=== PATIENT | female | born 2000 | race Caucasian/White ===

== ENCOUNTER 2019-01-02 09:15 | Emergency (ER) | payer OTHER ==
[~2019-01-02] VITALS: Ht 172.7 cm; Wt 65.9 kg
[2019-01-02 09:21] VITALS: BP 131/77
--- NOTE | 2019-01-02 22:14 | ECGEPIP ---
[facility] - ED Test Date: 2019-01-02 Pat Name: DESIRAE RICKS Department: Room: - Gender: Female Forest Officer: meliza : 2000 Requested By: CARTER LEMON PA-C. Order Number: [id number] Reading MD: Kd Jimenez Measurements Intervals [place] Rate: 67 P: 59 LA: 154 QRS: 77 QRSD: 92 T: 44 QT: 397 QTc: 420 Interpretive Statements SINUS RHYTHM Comparison tracing not on file Electronically Signed on 01-02-2019 22:13:37 EDT by Kd Jimenez
== END 2019-01-02 10:26 | disposition home or self-care (01) ==
LOC: EDBD 09:15 → M ED 09:15
DX: F41.0 Panic disorder [episodic paroxysmal anxiety] (principal); Z88.0 Allergy status to penicillin; Z91.012 Allergy to eggs

== ENCOUNTER 2019-03-07 16:38 | Emergency (ER) | payer OTHER ==
[~2019-03-07] VITALS: Ht 170.2 cm; Wt 63.6 kg
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
[2019-03-07 20:18] VITALS: BP 123/74
== END 2019-03-07 20:29 | disposition home or self-care (01) ==
LOC: M ED 16:38
DX: S67.195A Crushing injury of left ring finger, initial encounter (principal); W23.0XXA Caught, crushed, jammed, or pinched between moving objects, initial encounter; Y92.89 Other specified places as the place of occurrence of the external cause; Y93.89 Activity, other specified; Y99.1 Military activity; Z88.0 Allergy status to penicillin; Z91.012 Allergy to eggs

== ENCOUNTER 2019-03-28 01:59 | Emergency (ER) | payer OTHER ==
[~2019-03-28] VITALS: Ht 170.2 cm; Wt 65.9 kg
[2019-03-28] MEDS ORDERED: PRENMIS3 PO (04:47)
[2019-03-28 14:16] VITALS: BP 136/86
== END 2019-03-28 14:24 ==
LOC: M ED 01:59
DX: R45.851 Suicidal ideations (principal); Z88.1 Allergy status to other antibiotic agents; Z91.012 Allergy to eggs; Z79.899 Other long term (current) drug therapy

== ENCOUNTER 2019-06-14 14:30 | Emergency (ER) | payer OTHER ==
[~2019-06-14] VITALS: Ht 170.2 cm; Wt 69.5 kg
[~2019-06-14 14:30] MED LIST: PRENMIS3 PO
[2019-06-14 16:08] LABS: BASO % 0.3 % (0.0-1.0); EOS # 0.1 10^3/uL (0.0-0.5); EOS % 0.5 % (0.0-3.0); HEMATOCRIT 38.7 % (36.0-47.0); HEMOGLOBIN 12.4 g/dl (12.0-15.5); LYMPH # 2.7 10^3/uL (1.5-5.0); LYMPH % 28.5 % (24.0-44.0); MEAN CORPUSCULAR HEMOGLOBIN 27.6 pg (27.0-33.0); MONO # 0.8 10^3/uL (0.0-0.8); MONO % 8.7 % (0.0-5.0); NEUTROPHILS # 5.9 10^3/uL (1.5-8.5); NEUTROPHILS % 61.7 % (36.0-66.0); PLATELET COUNT, AUTOMATED 342 10^3/uL (150-450); WHITE BLOOD COUNT 9.6 10^3/uL (4.0-10.0)
--- NOTE | 2019-06-14 17:24 | REP ---
FIRST TRIMESTER ULTRASOUND: Real-time sonographic evaluation of the gravid uterus performed. There is a single living intrauterine gestation. Estimated gestational age is 6 weeks 1 day based on a crown rump length of 4 mm, EDC 02/06/2020. heart rate is 118 beats per minute. There is no subchorionic hemorrhage. There is a complex cystic structure of the right ovary which may represent a complex corpus luteum 2.3 x 1.6 x 2.7 cm. There is no evidence of torsion of either ovary with duplex Doppler evaluation. No free fluid is seen. Electronically Signed by Candelario Ascencio MD 06/18/2019 04:06 P
[2019-06-14 17:26] VITALS: BP 109/65
== END 2019-06-14 17:33 | disposition home or self-care (01) ==
LOC: M ED 14:30
DX: O99.89 Other specified diseases and conditions complicating pregnancy, childbirth and the puerperium (principal); R10.2 Pelvic and perineal pain; Z3A.01 Less than 8 weeks gestation of pregnancy; Z88.0 Allergy status to penicillin; Z91.012 Allergy to eggs

== ENCOUNTER 2019-11-13 21:11 | Outpatient (CLI) | payer OTHER ==
[~2019-11-13] VITALS: Ht 170.2 cm; Wt 84.9 kg
[2019-11-13 21:31] VITALS: BP 132/62
--- NOTE | 2019-11-13 23:45 | IPNPDOC ---
Text Note Date of Service The patient was seen on 11/13/19. NOTE Triage note Ashley is a 18yo with SIUP at approx 28wk presenting per instructions after she called the pager stating she had fallen around 1900. She was walking and rolled her ankle (notes this happens to her "all the time" b/c of weak ankles), fell onto the cement, fell on right side- she believes her belly hit her right knee. She wasn't feeling movement initially but has felt robust movement in triage. No vaginal bleeding, no ctx, no LOF. Vitals wnl, afebrile General: resting in bed comfortably, WDWN Abdomen: soft, gravid, NTTP Extremities: no edema of BLE TAUS: [place] IUP with cephalic presentation, MVP 4.4cm, +FCA, +FM, anterior placenta without obvious abnormality Cat I FHRT with bl 130's, +accels, -decels, mod ronan [place]: no ctx pattern Assessment: Ashley is a 18yo with SIUP at approx 28wk s/p fall at 1900 with NO e/o placental abruption. Reassuring status with Cat I FHRT and no ctx pattern. Vitals wnl, benign exam. Plan: -safe for discharge home -keep next routine OB appt at 32wk -tylenol/warm bath prn for discomfort -return precautions discussed Dr. Brinda Samano MD VS,Nadya, I+O VS, Nadya, I+O Vital Signs Date Time Temp Pulse Resp B/P (MAP) Pulse Ox O2 Delivery O2 Flow Rate FiO2 11/13/19 21:31 98.2 96 18 132/62 (85) Brinda Samano MD November 13, 2019 23:45
== END 2019-11-13 23:45 | disposition home or self-care (01) ==
LOC: M LDO 21:11
PROVIDERS: ATTEND Obstetrics & Gynecology
DX: Z04.3 Encounter for examination and observation following other accident (principal); W10.9XXA Fall (on) (from) unspecified stairs and steps, initial encounter; Y92.89 Other specified places as the place of occurrence of the external cause; Y93.89 Activity, other specified; Y99.8 Other external cause status; Z3A.28 28 weeks gestation of pregnancy
CPT/HCPCS: G0378; G0463

== ENCOUNTER → 2019-12-30 | Outpatient (CLI) | payer OTHER ==
[~2019-12-30] VITALS: Ht 172.7 cm; Wt 90.4 kg
[2019-12-30 13:44] VITALS: BP 142/82
[2019-12-30 14:37] VITALS: BP 128/66
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
== END ==
LOC: M LDO 13:17
PROVIDERS: ATTEND Obstetrics & Gynecology
DX: O47.9 False labor, unspecified (principal); Z3A.35 35 weeks gestation of pregnancy; Z88.1 Allergy status to other antibiotic agents; Z91.012 Allergy to eggs
CPT/HCPCS: 76815; G0378; G0463

== ENCOUNTER → 2020-01-31 | Outpatient (CLI) | payer OTHER | LOC: M LDO 21:50 | PROVIDERS: ATTEND Obstetrics & Gynecology | DX: O47.1 False labor at or after 37 completed weeks of gestation (principal); Z3A.39 39 weeks gestation of pregnancy | CPT/HCPCS: 59025; G0378; G0463 ==

== ENCOUNTER 2020-02-07 11:30 | Inpatient (IN) | payer OTHER ==
[2020-02-07] MEDS ORDERED: VANCOMYCIN 1000MG/20ML VIAL As Ordered ONE (11:57)
[2020-02-07] MEDS ORDERED: VANCOMYCIN 1000MG/20ML VIAL ONE (11:57)
[2020-02-07] MEDS ORDERED: BUTORPHANOL 2 MG/ML INJ (J0595) As Ordered ONE (12:07)
[2020-02-07] MEDS ORDERED: PROMETHAZINE INJ 25 MG/ML VIAL (J2550) As Ordered ONE (12:07)
[2020-02-07] MEDS ORDERED: BUTORPHANOL 2 MG/ML INJ (J0595) ONE (12:07)
[2020-02-07] MEDS ORDERED: PROMETHAZINE INJ 25 MG/ML VIAL (J2550) ONE (12:07)
[2020-02-07] MEDS ORDERED: FENTANYL 2MCG/ML ROPIVACAINE 0.2% IN 0.9% NACL 100ML IVBAG ONE (14:18)
[2020-02-07] MEDS ORDERED: FENTANYL 2MCG/ML ROPIVACAINE 0.2% IN 0.9% NACL 100ML IVBAG As Ordered ONE (14:18)
[2020-02-07] MEDS ORDERED: OXYTOCIN 30 UNITS IN 0.9% NaCl 500ML IV BAG (J2590) ONE (19:57)
[2020-02-07] MEDS ORDERED: OXYTOCIN 30 UNITS IN 0.9% NaCl 500ML IV BAG (J2590) As Ordered ONE (19:57)
[2020-02-07] MEDS ORDERED: IBUPROFEN 800 MG TAB As Ordered ONE (20:31)
[2020-02-07] MEDS ORDERED: ACETAMINOPHEN 325 MG TAB As Ordered ONE (21:30)
[2020-02-07] MEDS ORDERED: IBUPROFEN 800 MG TAB ONE (21:31)
[2020-02-07] MEDS ORDERED: ACETAMINOPHEN 500 MG TAB As Ordered ONE (21:33)
[2020-02-07] MEDS ORDERED: ACETAMINOPHEN 500 MG TAB ONE (22:33)
[2020-02-07] MEDS ORDERED: CEFTAZIDIME ONE (23:00)
[2020-02-08] MEDS ORDERED: ACETAMINOPHEN 500 MG TAB As Ordered ONE (06:29)
[2020-02-08] MEDS ORDERED: ACETAMINOPHEN 500 MG TAB ONE (06:29)
[2020-02-08] MEDS ORDERED: SIMETHICONE 80 MG CHEW TAB As Ordered ONE (17:31)
[2020-02-08] MEDS ORDERED: SIMETHICONE 80 MG CHEW TAB ONE (17:31)
[2020-02-08] MEDS ORDERED: DOCUSATE SODIUM 100 MG CAP ONE (17:32)
[2020-02-08] MEDS ORDERED: IBUPROFEN 800 MG TAB As Ordered ONE (17:32)
[2020-02-08] MEDS ORDERED: IBUPROFEN 800 MG TAB ONE (17:32)
[2020-02-08] MEDS ORDERED: DOCUSATE SODIUM 100 MG CAP As Ordered ONE (17:32)
[2020-02-08] MEDS ORDERED: ANUSOL HC CREAM 30GM ONE (17:54)
[2020-02-08] MEDS ORDERED: ANUSOL HC CREAM 30GM As Ordered ONE (17:54)
[2020-02-09] MEDS ORDERED: DOCUSATE SODIUM 100 MG CAP ONE (09:25)
[2020-02-09] MEDS ORDERED: DOCUSATE SODIUM 100 MG CAP As Ordered ONE (09:25)
[2020-02-09] MEDS ORDERED: IBUPROFEN 800 MG TAB ONE ×2 (09:39→09:45)
[2020-02-09] MEDS ORDERED: IBUPROFEN 800 MG TAB As Ordered ONE ×2 (09:39→09:45)
[2020-02-09] MEDS ORDERED: ACETAMINOPHEN 500 MG TAB As Ordered ONE (16:39)
[2020-02-09] MEDS ORDERED: ACETAMINOPHEN 500 MG TAB ONE (16:39)
[2020-04-05 11:30] LABS: HEMATOCRIT 34.3 % (36.0-47.0); HEMOGLOBIN 10.4 g/dl (12.0-15.5); MEAN CORPUSCULAR HGB CONC 30.3 g/dl (32.0-36.5); PLATELET COUNT, AUTOMATED 355 10^3/uL (150-450); RED BLOOD COUNT 4.34 10^6/uL (4.00-5.40); WHITE BLOOD COUNT 13.9 10^3/uL (4.0-10.0)
--- NOTE | 2020-04-11 13:40 | DS ---
: 02/07/2020 DATE OF DISCHARGE: 02/09/2020 This lady is a 19-year-old 1, now para 1, admitted in active labor at 40 and 4 weeks of gestation. Had an epidural in place. Spontaneous vaginal delivery of a female , 8 pounds 3 ounces, 3716 grams, scores of 6 and 7 at one and five minutes, respectively. Baby was immediately sent to the intensive care unit (NICU). Patient had a left lateral vault laceration, which was repaired. She had some choreo. Was given Rocephin 1 gram intravenous (IV), and she was GBS positive and treated appropriately. On her second day, we discussed phlebitis, cystitis, mastitis, metritis, and cellulitis, diet, exercise, pain management, and perineal, breast, and wound care. The rest of the examination is unremarkable. She is normocephalic, atraumatic. Neck: Full range of motions. Pupils equal and reactive to light. Distal pulses are symmetric. No evidence of deep venous thrombosis (DVT), pulmonary embolus (PE), or superficial phlebitis. Chest is clear bilaterally to bases. No wheezes or rhonchi. No costovertebral angle (CVA) tenderness. Abdomen soft. Uterus 2 below. Lochia is moderate. Four-quadrant bowel sounds are noted. Perineum is healing and is nontender. Hemoglobin 10.4, hematocrit 34.3, platelets 355. Blood pressure 116/57, respirations are 18, pulse is 80, and temperature is 98.1. Patient is planned for discharge today. Baby is in the NICU. Medications were dispensed at [facility]. She has a 6-week check at [facility]. All questions were answered. [facility]
== END 2020-02-09 18:30 | disposition home or self-care (01) | DRG 807 ==
LOC: M LDI 11:30
PROVIDERS: ADMIT Obstetrics & Gynecology; ATTEND Obstetrics & Gynecology
PROC: 10E0XZZ Delivery of Products of Conception, External Approach (ICD-10-PCS; principal; 2020-02-07)
PROC: 0HQ9XZZ Repair Perineum Skin, External Approach (ICD-10-PCS; 2020-02-07)
DX: O48.0 Post-term pregnancy (principal); Z37.0 Single live birth; Z3A.40 40 weeks gestation of pregnancy; O70.0 First degree perineal laceration during delivery; O26.00 Excessive weight gain in pregnancy, unspecified trimester; O99.824 Streptococcus B carrier state complicating childbirth

== ENCOUNTER → 2020-09-09 | Outpatient (CLI) | payer OTHER ==
--- NOTE | 2020-09-09 14:36 | REP ---
INDICATION: SPONTANEOUS , STAT LABS 1ST THEN US COMPARISON: None. TECHNIQUE: Transvaginal obstetrical ultrasound with color Doppler evaluation. FINDINGS: Anteverted uterus measures 8.8 x 3.8 x 4.8 cm. The endometrial complex measures 4 mm thickness. A small nonspecific 3 mm cyst is identified in the lower uterine segment. The bilateral ovaries are normal in appearance and vascularity without torsion. Right ovary measures 3.2 x 2.3 x 1.6 cm (RI 0.45). Left ovary measures 3.2 x 2.0 x 2.9 cm (RI 0.49). No pelvic fluid or adnexal mass lesion. IMPRESSION: 1. Relatively normal appearance to the uterus and ovaries as described above. Small 3 mm nonspecific cyst in the lower uterine segment. No decidual reaction, endocervical fluid or evidence for . Correlation with serial HCG levels recommended. <Electronically signed by Francis Knutson > 09/09/20 [id number]
== END ==
LOC: M RAD 13:41
PROVIDERS: ATTEND Obstetrics & Gynecology
DX: N85.4 Malposition of uterus (principal); N83.209 Unspecified ovarian cyst, unspecified side; O02.1 Missed abortion

== ENCOUNTER → 2021-02-17 | Outpatient (REF) | payer OTHER | LOC: M LAB REF 14:30 | PROVIDERS: ATTEND Physician Assistant Medical | DX: J02.9 Acute pharyngitis, unspecified (principal) ==